=== PATIENT | male | born 1985 | race Caucasian/White ===

== ENCOUNTER 2020-02-15 09:15 | Emergency (ER) | payer SELFPAY ==
[~2020-02-15] VITALS: Ht 154.9 cm; Wt 96.0 kg
[2020-02-15] MEDS ORDERED: KETOROLAC 30MG/ML VIAL IV STA (09:50)
[2020-02-15] MEDS ORDERED: SODIUM CHLORIDE 0.9% 1,000 ML IV ONE (09:50)
[2020-02-15] MEDS ORDERED: MAGNESIUM/ALUMINUM HYDROXIDE/SIMETHICONE 30ML UDC PO STA (09:50)
[2020-02-15 10:05] LABS: BASOPHILS % 0.4 % (0.0-2.0); EOSINOPHILS % 1.4 % (0.0-5.0); HEMATOCRIT. 43.3 % (42.0-52.0); LYMPHOCYTES % 28.7 % (20.0-50.0); MEAN CORPUSCULAR HEMOGLOBIN 28.5 pg (28.0-32.0); MEAN CORPUSCULAR VOLUME 82.3 fL (80.0-94.0); MEAN PLATELET VOLUME 7.7 fl (7.4-10.4); MONOCYTES % 7.5 % (2.0-8.0); PLATELET 240 x1000/uL (130-400); RED BLOOD CELL COUNT 5.26 mill/uL (4.7-6.1); RED CELL DISTRIBUTION WIDTH 14.9 % (11.6-14.6)
[2020-02-15 10:14] LABS: PROTHROMBIN TIME 10.3 sec (9.6-11.0)
[2020-02-15 10:24] LABS: CHLORIDE 110 mEq/L (98-107)
[2020-02-15] MEDS ORDERED: ONDANSETRON HCL 4MG/2ML INJ IV ONE (10:30)
[2020-02-15 11:54] LABS: CLARITY URINE CLEAR (CLEAR); COLOR URINE YELLOW (YELLOW); KETONES URINE NEGATIVE (NEGATIVE); LEUKOCYTE ESTERASE URINE NEGATIVE (NEGATIVE); NITRITE URINE NEGATIVE (NEGATIVE); OCCULT BLOOD URINE NEGATIVE (NEGATIVE); PH URINE 7.5 (4.5-8.0); PROTEIN URINE NEGATIVE (NEGATIVE); SPECIFIC GRAVITY URINE 1.008 (1.005-1.030)
[2020-02-15 12:22] VITALS: BP 129/77
== END 2020-02-15 12:20 | disposition home or self-care (01) ==
LOC: ER 09:15
DX: K80.20 Calculus of gallbladder without cholecystitis without obstruction (principal); Z87.442 Personal history of urinary calculi
CPT/HCPCS: 36415; 76705; 80053; 81003; 83690; 85025; 85610; 93005; 96361; 96374; 96375; 99285; J1885; J2405; J7030

== ENCOUNTER 2020-04-01 10:18 | Emergency (ER) | payer SELFPAY ==
[~2020-04-01] VITALS: Ht 154.9 cm; Wt 93.0 kg
[2020-04-01] MEDS ORDERED: MORPHINE SULFATE 4 MG/ML CPJ (NOT FOR IM USE) IV STA (10:51)
[2020-04-01] MEDS ORDERED: ONDANSETRON HCL 4MG/2ML INJ IV STA (10:51)
[2020-04-01] MEDS ORDERED: SODIUM CHLORIDE 0.9% 1,000 ML IV ONE (11:00)
[2020-04-01 11:15] LABS: BASOPHILS % 0.4 % (0.0-2.0); EOSINOPHILS % 0.1 % (0.0-5.0); HEMATOCRIT. 46.6 % (42.0-52.0); HEMOGLOBIN. 16.2 g/dL (14.0-18.0); LYMPHOCYTES % 7.3 % (20.0-50.0); MEAN CORPUSCULAR HEMOGLOBIN 28.3 pg (28.0-32.0); MEAN CORPUSCULAR VOLUME 81.6 fL (80.0-94.0); MEAN PLATELET VOLUME 8.2 fl (7.4-10.4); MONOCYTES % 2.7 % (2.0-8.0); NEUTROPHILS % 89.5 % (40.0-76.0); PLATELET 307 x1000/uL (130-400); RED BLOOD CELL COUNT 5.71 mill/uL (4.7-6.1); RED CELL DISTRIBUTION WIDTH 14.3 % (11.6-14.6)
[2020-04-01 11:24] LABS: CHLORIDE 105 mEq/L (98-107)
[2020-04-01 11:25] LABS: PROTHROMBIN TIME 10.5 sec (9.6-11.0)
[2020-04-01] MEDS ORDERED: MORPHINE SULFATE 4 MG/ML CPJ (NOT FOR IM USE) IV ONE ×2 (13:15→14:30)
[2020-04-01] MEDS ORDERED: MORPHINE SULFATE 2 MG/ML CPJ (NOT FOR IM USE) IV ONE (14:30)
[2020-04-01 15:00] VITALS: BP 154/98
== END 2020-04-01 13:30 | disposition home or self-care (01) ==
LOC: ER 10:18 → ENRESERV 15:05 → CANRESERV 15:05 → CANBEDREQ 15:59
DX: K80.50 Calculus of bile duct without cholangitis or cholecystitis without obstruction (principal)
CPT/HCPCS: 36415; 76705; 80053; 83690; 85025; 85610; 93005; 96361; 96374; 96375; 96376; 99285; J2270; J2405; J7030